=== PATIENT | male | born 1935 | race Caucasian/White ===

== ENCOUNTER → 2019-03-11 12:25 | Outpatient (CLI) | payer MEDICARE ==
--- NOTE | 2019-03-13 13:47 | EC ---
PATIENT:AARON THAKUR DATE OF SERVICE: 03/11/19 SEX: M MEDICAL RECORD: [id number] DATE OF : 35 LOCATION:[facility] AGE OF PATIENT: 84 ADMISSION DATE: 03/11/19 REFERRING PHYSICIAN: INTERPRETING PHYSICIAN: MELODY DOMINGUEZ MD ECHOCARDIOGRAM REPORT ECHO CHARGES 4 ECHO COMPLETE Date: 03/11/19 CLINICAL DIAGNOSIS: MURMUR/ARRHYTHMIAS ECHOCARDIOGRAPHIC MEASUREMENTS (adult normal given) AC root (d.<3.7cm) 3.0 cm LV Septum d (<1.2 cm> 1.3 cm Valve Excursion 1.7 cm LV Septum (systole) 2.1 cm Left Atria (s.<4.0cm> 5.2 cm LVPW d(<1.2cm) 1.2 cm RV (d.<2.3cm) 2.1 cm LVPW (sytole) 1.9 cm LV diastole(<5.6CM) 5.7 cm MV E-F(>70mm/sec) cm LV systole 3.1 cm LVOT Diameter 1.8 cm MV exc.(>10mm) cm Est.ejection fraction (50-75%) % DOPPLER: LVIT cm/sec A 133 cm/sec E 71.0 cm/sec LA cm/sec RVSP 40.0 mmHg LVOT 125 cm/sec AOP1/2T 688.0m/s Asc. Ao 176 cm/sec RVOT 64.0 cm/sec RA cm/sec PA 100 cm/sec AV Gradient Peak 12.4 mmHg AV Mean 6.5 mmHg AV Area 2.1 cm MV Gradient Peak 6.9 mmHg MV Mean 1.5 mmHg MV Area cm COMMENTS: OP - HC Business Analytics Specialist: 1 CRISTIANE LUDWIN Event Producer: 3 Dr. Guerra TAPE# PACS Pericardial Effusion N DATE OF SERVICE: Adequate 2D, color flow, spectral Doppler, and M-Mode. Borderline LVH. LV internal dimension is normal. Wall motion is normal. EF is greater than or equal to 55%. Aortic valve is tricuspid. No evidence of stenosis on Doppler interrogation. Left atrium dilated at 5.2 cm. Mitral valve shows no prolapse. Mild MR. Right-sided chambers grossly normal. [id number] TR. TRANSINT:[id number] Voice Confirmation ID: [id number] DOCUMENT ID: [id number] ECHOCARDIOGRAM REPORT [id number] AARON THAKUR,MELODY Manuel MD at 1347 CC: [id number] DICTATION DATE: 03/12/19 1303 BARREL CLEANER: 03/12/19 1551 DEP CLI 03/11/19 [place] [id number] [place] [id number]
== END | disposition home or self-care (01) ==
LOC: D.HCCARDIO 12:25
DX: R01.1 Cardiac murmur, unspecified (principal)